=== PATIENT | female | born 1995 | race Caucasian/White ===

== ENCOUNTER 2017-05-16 06:09 | Inpatient (IN) | payer OTHER ==
[~2017-05-16] VITALS: Ht 175.3 cm; Wt 3.6 kg
[2017-05-19] MEDS ORDERED: PERCOCET 5-3251 EACH PO (08:47)
== END 2017-05-19 14:48 | disposition home or self-care (01) | DRG 765 ==
LOC: LDR 06:09 → O/R 17:50 → SURG-SUITE 19:02
PROVIDERS: Specialist
PROC: 3E033VJ Introduction of Other Hormone into Peripheral Vein, Percutaneous Approach (ICD-10-PCS; 2017-05-16)
PROC: 4A1HXCZ Monitoring of Products of Conception, Cardiac Rate, External Approach (ICD-10-PCS; 2017-05-16)
PROC: 10D00Z1 Extraction of Products of Conception, Low, Open Approach (ICD-10-PCS; principal; 2017-05-16 17:00)
DX: O33.8 Maternal care for disproportion of other origin (principal); O41.03X0 Oligohydramnios, third trimester, not applicable or unspecified; Z37.0 Single live birth; O61.0 Failed medical induction of labor; Z3A.39 39 weeks gestation of pregnancy